=== PATIENT | female | born 1995 | race Caucasian/White ===

== ENCOUNTER 2016-09-18 12:41 | Outpatient (CLI) ==
[2016-07-30 23:48] VITALS: BMI 26.5
== END 2016-09-18 12:42 | disposition home or self-care (01) ==
LOC: LAB 12:41
PROVIDERS: ATTEND Physician Assistant
DX: R19.7 Diarrhea, unspecified (principal)

== ENCOUNTER 2017-02-16 15:47 | Outpatient (CLI) ==
[2016-07-30 23:48] VITALS: BMI 26.5
--- NOTE | 2017-02-16 16:51 | DI ---
EXAM: Thoracic spine three view HISTORY: Back pain COMPARISON: None FINDINGS: Minimal rightward curvature lower thoracic spine. Vertebral bodies normal height. No fr acture. No subluxation. Intervertebral spaces maintained. No fracture. IMPERSSION: Minimal rightward curvature lower thoracic spine. Otherwise normal examination
--- NOTE | 2017-02-16 17:03 | DI ---
EXAM: Four views of the lumbar spine HISTORY: Back pain. COMPARISON: CT abdomen pelvis 11/15/2016 FINDINGS: No acute compression fracture or subluxation. There is minimal facet arthropathy. The angel mbosacral junction is narrowed. Soft tissues are unremarkable. There is changes consistent with ch olecystectomy. IMPRESSION: No acute abnormality of the lumbar spine.
== END 2017-02-16 15:48 | disposition home or self-care (01) ==
LOC: RAD 15:47
PROVIDERS: ATTEND Physician Assistant
DX: M54.6 Pain in thoracic spine (principal)

== ENCOUNTER 2017-05-26 18:44 | Emergency (ER) ==
[2017-05-26 18:51] VITALS: BP 119/75; BMI 30.4
[2017-05-26 19:18] LABS: FLU INTERNAL QC INTERNAL QC VALID; RAPID FLU A NEGATIVE (NEGATIVE); RAPID FLU B NEGATIVE (NEGATIVE)
--- NOTE | 2017-05-26 19:57 | ED.PDOC ---
General ED Provider: Dr. HARPER GALVAN Chief Complaint: Fever Stated Complaint: Patient is brought by with complains of feeling poorly for the past few days with fever sore throat and vomiting yesterday. Time Seen by Physician: 19:20 Mode of Arrival: Walk-In Information Source: Patient Exam Limitations: No limitations Primary Care Provider: SYLVAIN TODD Nursing and Triage Documentation Reviewed and Agree: Yes Miscellaneous Complaint Exam - Febrile Illness/Adult Complaint/Exam Onset/Duration: noon today Symptoms Are: Still present Timing: Constant Highest Temperature Recorded: 101 Initial Severity: Moderate Current Severity: Moderate Aggravating: Reports: None Alleviating: Reports: None Associated Signs and Symptoms: Reports: Sore throat, Nausea, Vomiting ( yesterday ). Denies: Headache, Fluid intake, Short of air, Cough, Chills, Diaphoresis, Dysuria, Arthralgia, Stiff neck, Myalgia, Rash, Altered mental status Pseudomonas Risk Factors: Reports: None Serious Bacterial Infection Risk Factors: Reports: None Current Antibiotic Use: No Related Surgical History: None Specific Findings: Absent: Meningeal signs, Diaphoresis, Joint swelling, Erythema, Cellulitis, Lymphadenopathy, Petechiae, CVA tenderness Differential Diagnoses: Bacteremia, Viremia Review of Systems - Review Of Systems Constitutional: Reports: Fever, Weakness Eyes: Reports: No symptoms Ears, Nose, Mouth, Throat: Reports: Throat pain Respiratory: Reports: No symptoms Cardiac: Reports: No symptoms GI: Reports: Nausea, Vomiting : Reports: No symptoms Musculoskeletal: Reports: No symptoms Skin: Reports: No symptoms Neurological: Reports: Anxiety Endocrine: Reports: No symptoms Hematologic/Lymphatic: Reports: No symptoms All Other Systems: Reviewed and Negative Past Medical History - Past Medical History Previously Healthy: Yes Endocrine: Reports: None Cardiovascular: Reports: None Respiratory: Reports: Asthma Hematological: Reports: None Gastrointestinal: Reports: None Genitourinary: Reports: None Neuro/Psych: Reports: None Musculoskeletal: Reports: None Cancer: Reports: None Last Menstrual Period: 05/11/17 - Surgical History General Surgical History: Reports: , Cholecystectomy, Tonsillectomy - Family History Family History: Reports: None - Social History Smoking Status: Never smoker Hx Substance Use: No Alcohol Screening: None Physical Exam - Physical Exam Appearance: Ill-appearing Ill-appearing: Moderate Eyes: FADUMO, EOMI, Conjunctiva clear ENT: Ears normal, Nose normal, Oropharynx normal Respiratory: Airway patent, Breath sounds clear, Breath sounds equal, Respirations nonlabored Cardiovascular: RRR, Pulses normal, No rub, No murmur GI/: Soft, Nontender, No masses, Bowel sounds normal, No Organomegaly Musculoskeletal: Normal strength, ROM intact, No edema, No calf tenderness Skin: Warm, Dry, Normal color Neurological: Sensation intact, Motor intact, Reflexes intact, Cranial nerves intact, Alert, Oriented Psychiatric: Affect appropriate, Mood appropriate Critical Care Note - Critical Care Note Total Time (mins): 0 Course - Course Hematology/Chemistry: 05/26/17 20:00 05/26/17 20:00 Orders, Labs, Meds: Lab Review 05/26/17 05/26/17 05/26/17 18:55 20:00 20:00 WBC 5.61 RBC 4.19 L Hgb 12.3 Hct 36.8 L MCV 87.8 MCH 29.4 MCHC 33.4 RDW Coeff of Garcia 12.3 Plt Count 195 Immature Gran % (Auto) 0.4 Neut % (Auto) 75.8 Lymph % (Auto) 14.8 [place] % (Auto) 8.4 Eos % (Auto) 0.2 Baso % (Auto) 0.4 Immature Gran # (Auto) 0.0 Neut # 4.3 Lymph # 0.8 [place] # 0.5 Eos # 0.0 Baso # 0.0 Sodium 136 Potassium 3.4 L Chloride 101 Carbon Dioxide 26 Anion Gap 12.4 BUN 7 Creatinine 0.84 Estimated GFR (MDRD) 85.00 BUN/Creatinine Ratio 8.33 Glucose 94 Calcium 9.1 Total Bilirubin 0.54 AST 28 ALT 45 Alkaline Phosphatase 95 Total Protein 7.3 Albumin 3.7 Globulin 3.6 Albumin/Globulin Ratio 1.03 Serum , Qual Urine Color Urine Clarity Urine pH Ur Specific [place] Urine Protein Urine Glucose (UA) Urine Ketones Urine Blood Urine Nitrite Urine Bilirubin Urine Urobilinogen Ur Leukocyte Esterase Influenza A (Rapid) Negative Influenza B (Rapid) Negative 05/26/17 05/26/17 20:00 20:07 WBC RBC Hgb Hct MCV MCH MCHC RDW Coeff of Garcia Plt Count Immature Gran % (Auto) Neut % (Auto) Lymph % (Auto) [place] % (Auto) Eos % (Auto) Baso % (Auto) Immature Gran # (Auto) Neut # Lymph # [place] # Eos # Baso # Sodium Potassium Chloride Carbon Dioxide Anion Gap BUN Creatinine Estimated GFR (MDRD) BUN/Creatinine Ratio Glucose Calcium Total Bilirubin AST ALT Alkaline Phosphatase Total Protein Albumin Globulin Albumin/Globulin Ratio Serum , Qual Negative Urine Color Yellow Urine Clarity Clear Urine pH 6.0 Ur Specific [place] <=1.005 Urine Protein Negative Urine Glucose (UA) Negative Urine Ketones Negative Urine Blood Negative Urine Nitrite Negative Urine Bilirubin Negative Urine Urobilinogen 0.2 Ur Leukocyte Esterase Negative Influenza A (Rapid) Influenza B (Rapid) Orders Category Date Time Status ED IV/MEDIPORT/POWERPORT .ONCE EMERGENCY 05/26/17 19:52 Active CBC W/ AUTO DIFF Stat LAB 05/26/17 20:00 Completed COMPREHENSIVE METABOLIC PANEL Stat LAB 05/26/17 20:00 Completed HCG QUALITATIVE [SERUM ] Stat LAB 05/26/17 20:00 Completed MOLECULAR GROUP A STREP Stat LAB 05/26/17 18:55 Results RAPID FLU A/B Stat LAB 05/26/17 18:55 Completed RAPID STREP SCREEN [STREP SCREEN] Stat LAB 05/26/17 18:55 Results URINALYSIS C & S IF INDICATED Stat LAB 05/26/17 20:07 Completed 0.9 % Sodium Chloride [Saline Flush] MEDS 05/26/17 19:52 Ordered 1 syr IVF PRN PRN Acetaminophen [Tylenol] MEDS 05/26/17 19:57 Discontinued 1,000 mg PO ONCE STA Sodium Chloride 0.9% [Sodium Chloride] 1,000 ml MEDS 05/26/17 19:52 Active IV BOLUS Medications Generic Name Dose Route Start Last Admin Trade Name Freq PRN Reason Stop Dose Admin Sodium Chloride 1,000 mls @ 1,000 mls/hr 05/26/17 19:52 05/26/17 20:04 Sodium Chloride IV 05/26/17 20:51 1,000 mls/hr BOLUS STA Administration Sodium Chloride 1 syr 05/26/17 19:52 Saline Flush IVF PRN PRN To flush IV Discontinued Medications Generic Name Dose Route Start Last Admin Trade Name Freq PRN Reason Stop Dose Admin Acetaminophen 1,000 mg 05/26/17 19:57 05/26/17 20:00 Tylenol PO 05/26/17 19:58 1,000 mg ONCE STA Administration Vital Signs: Temp Pulse Resp BP Pulse Ox 05/26/17 20:47 100.8 F H 05/26/17 18:45 101.9 F H 81 20 119/75 98 Departure - Departure Time of Disposition: 20:50 Disposition: HOME SELF-CARE Discharge Problem: Viral syndrome Instructions: Viral Syndrome (ED) Condition: Fair Pt referred to PMD for follow-up: Yes Additional Instructions: Push fluids Follow up wit PCP in 3 day Alternate Tylenol with Motrin Take nausea medication as prescribed. Prescriptions: Ondansetron HCl [Zofran Tab] 4 mg PO Q8H PRN #14 tablet PRN Reason: Nausea / Vomiting Allergies/Adverse Reactions: Allergies No Known Allergies Allergy (Verified 05/26/17 18:51) Home Medications: Ambulatory Orders Ondansetron HCl [Zofran Tab] 4 mg PO Q8H PRN #14 tablet 05/26/17 Disposition Discussed With: Patient, Family
[2017-05-26] MEDS: TYLENOL PO STA (20:00)
[2017-05-26] MEDS: SODIUM CHLORIDE 1,000 ML IV STA (20:04)
[2017-05-26 20:08] LABS: BASOPHILS % (AUTO) 0.4 % (0.0-3.0); EOSINOPHILS % (AUTO) 0.2 % (0.0-7.0); HEMATOCRIT 36.8 % (37.0-47.0); HEMOGLOBIN 12.3 g/dl (12.0-16.0); IMMATURE GRANULOCYTE % (AUTO) 0.4 % (0.0-5.0); LYMPHOCYTES # (AUTO) 0.8 K/uL (0.60-3.4); LYMPHOCYTES % (AUTO) 14.8 (10.0-50.0); MEAN CORPUSCULAR HEMOGLOBIN 29.4 pg (27.0-31.0); MEAN CORPUSCULAR HGB CONC 33.4 (31.8-35.4); MEAN CORPUSCULAR VOLUME 87.8 fl (81.0-99.0); MONOCYTES # (AUTO) 0.5 K/uL (0.4-2.0); MONOCYTES % (AUTO) 8.4 (0-10); NEUTROPHILS # (AUTO) 4.3 K/ul (2.0-6.9); NEUTROPHILS % (AUTO) 75.8; PLATELET COUNT 195 10^3/uL (140-440); RED BLOOD COUNT 4.19 10^6/ul (4.20-5.40); WHITE BLOOD COUNT 5.61 K/ul (4.6-10.2)
[2017-05-26 20:16] LABS: BILIRUBIN,URINE Negative (NEGATIVE); KETONES,URINE Negative (NEGATIVE); LEUKOCYTE ESTERASE ,URINE Negative (NEGATIVE); NITRITE,URINE Negative (NEGATIVE); PROTEIN,URINE Negative (NEGATIVE); URINE, BLOOD Negative (NEGATIVE)
[2017-05-26 20:17] LABS: ADD URINE MICROSCOPIC NO
[2017-05-26 20:24] LABS: SERUM PREGNANCY INTERNAL QC INTERNAL QC VALID
[2017-05-26 20:28] LABS: ALBUMIN 3.7 g/dL (3.4-5.0); ALBUMIN/GLOBULIN RATIO 1.03; ANION GAP 12.4; BILIRUBIN,TOTAL 0.54 mg/dL (0.00-1.20); BUN/CREATININE RATIO 8.33; CALCIUM 9.1 mg/dL (8.2-10.2); CREATININE 0.84 mg/dL (0.60-1.30); POTASSIUM 3.4 mmol/L (3.5-5.10); TOTAL PROTEIN 7.3 g/dL (6.4-8.2)
[2017-05-26 20:48] VITALS: TEMP 100.8
[2017-05-26] MEDS: ZOFRAN 4 MG/2 ML IVP STA (20:55)
== END 2017-05-26 21:14 | disposition home or self-care (01) ==
LOC: ED 18:44
DX: B34.9 Viral infection, unspecified (principal)
CPT/HCPCS: 36415; 80053; 81001; 84703; 85025; 87651; 87804; 87880; 96361; 96374; 99283

== ENCOUNTER 2017-06-13 12:27 | Emergency (ER) ==
[2017-06-13 12:27] VITALS: BMI 30.4
[2017-06-13 12:30] VITALS: BP 122/82; TEMP 98.9
[2017-06-13 13:18] LABS: FLU INTERNAL QC INTERNAL QC VALID; RAPID FLU A NEGATIVE (NEGATIVE); RAPID FLU B NEGATIVE (NEGATIVE)
--- NOTE | 2017-06-13 13:59 | ED.PDOC ---
General ED Provider: Dr. HARPER GALVAN Chief Complaint: Cough Stated Complaint: Pateint states she has had cough symtoms for 2 weeks. Has been told it is viral. Return today beause he is still coughing and has pain on the throat when she coughs. She admits to secound hand tobacco exposure from the . Time Seen by Physician: 13:57 Mode of Arrival: Walk-In Information Source: Patient Exam Limitations: No limitations Primary Care Provider: SYLVAIN TODD Nursing and Triage Documentation Reviewed and Agree: Yes Review of Systems - Review Of Systems Constitutional: Reports: No symptoms Eyes: Reports: No symptoms Ears, Nose, Mouth, Throat: Reports: No symptoms, Throat pain Respiratory: Reports: Cough (non productive ) Cardiac: Reports: No symptoms GI: Reports: No symptoms : Reports: No symptoms Musculoskeletal: Reports: No symptoms Skin: Reports: No symptoms Neurological: Reports: No symptoms Endocrine: Reports: No symptoms Hematologic/Lymphatic: Reports: No symptoms All Other Systems: Reviewed and Negative Past Medical History - Past Medical History Previously Healthy: Yes Endocrine: Reports: None Cardiovascular: Reports: None Respiratory: Reports: Asthma Hematological: Reports: None Gastrointestinal: Reports: None Genitourinary: Reports: None Neuro/Psych: Reports: None Musculoskeletal: Reports: None Cancer: Reports: None Last Menstrual Period: now - Surgical History General Surgical History: Reports: , Cholecystectomy, Tonsillectomy - Family History Family History: Reports: None - Social History Smoking Status: Never smoker Hx Substance Use: No Alcohol Screening: None - Immunizations Influenza Vaccine within 12 Months: No Pneumococcal Vaccine up to Date: No Physical Exam - Physical Exam Appearance: Well-appearing, No pain distress, Well-nourished Eyes: FADUMO, EOMI, Conjunctiva clear ENT: Ears normal, Nose normal, Oropharynx normal Respiratory: Airway patent, Breath sounds clear, Breath sounds equal, Respirations nonlabored Cardiovascular: RRR, Pulses normal, No rub, No murmur GI/: Soft, Nontender, No masses, Bowel sounds normal, No Organomegaly Musculoskeletal: Normal strength, ROM intact, No edema, No calf tenderness Skin: Warm, Dry, Normal color Neurological: Sensation intact, Motor intact, Reflexes intact, Cranial nerves intact, Alert, Oriented Psychiatric: Affect appropriate, Mood appropriate Critical Care Note - Critical Care Note Total Time (mins): 0 Course - Course Orders, Labs, Meds: Lab Review 06/13/17 13:00 Influenza A (Rapid) Negative Influenza B (Rapid) Negative Orders Category Date Time Status FLU A & B RAPID TEST [RAPID FLU A/B] Stat LAB 06/13/17 13:00 Completed MOLECULAR GROUP A STREP Stat LAB 06/13/17 13:00 Results STREP SCREEN Stat LAB 06/13/17 13:00 Results Vital Signs: Temp Pulse Resp BP Pulse Ox 06/13/17 12:27 98.9 F 76 18 122/82 98 Departure - Departure Time of Disposition: 13:57 Disposition: HOME SELF-CARE Discharge Problem: Cough Instructions: Cold Symptoms (ED) Condition: Stable Pt referred to PMD for follow-up: Yes Additional Instructions: Avoid second hand smoke exposure Take medications as needed. Prescriptions: Benzonatate [Tessalon Perles] 100 mg PO TID PRN #25 capsule PRN Reason: Cold Symptons Allergies/Adverse Reactions: Allergies No Known Allergies Allergy (Verified 06/13/17 12:30) Home Medications: Ambulatory Orders Benzonatate [Tessalon Perles] 100 mg PO TID PRN #25 capsule 06/13/17 Disposition Discussed With: Patient
== END 2017-06-13 14:24 | disposition home or self-care (01) ==
LOC: ED 12:27
DX: R05 Cough (principal); R07.0 Pain in throat; Z77.22 Contact with and (suspected) exposure to environmental tobacco smoke (acute) (chronic)
CPT/HCPCS: 87651; 87804; 87880; 99283

== ENCOUNTER 2017-08-03 16:20 | Emergency (ER) ==
[2017-08-03 16:27] VITALS: BP 130/79; TEMP 100; BMI 30.1
[2017-08-03] MEDS ORDERED: ZOFRAN 4 MG/2 ML IM STA (16:30)
[2017-08-03 16:49] LABS: BASOPHILS % (AUTO) 0.3 % (0.0-3.0); EOSINOPHILS % (AUTO) 0.1 % (0.0-7.0); HEMATOCRIT 42.3 % (37.0-47.0); HEMOGLOBIN 14.1 g/dl (12.0-16.0); IMMATURE GRANULOCYTE % (AUTO) 0.2 % (0.0-5.0); LYMPHOCYTES # (AUTO) 0.5 K/uL (0.60-3.4); LYMPHOCYTES % (AUTO) 3.8 (10.0-50.0); MEAN CORPUSCULAR HEMOGLOBIN 29.2 pg (27.0-31.0); MEAN CORPUSCULAR HGB CONC 33.3 (31.8-35.4); MEAN CORPUSCULAR VOLUME 87.6 fl (81.0-99.0); MONOCYTES # (AUTO) 0.3 K/uL (0.4-2.0); MONOCYTES % (AUTO) 2.2 (0-10); NEUTROPHILS % (AUTO) 93.4; PLATELET COUNT 190 10^3/uL (140-440); RED BLOOD COUNT 4.83 10^6/ul (4.20-5.40); WHITE BLOOD COUNT 11.74 K/ul (4.6-10.2)
[2017-08-03 17:00] LABS: BILIRUBIN,URINE 1+ (NEGATIVE); KETONES,URINE Negative (NEGATIVE); LEUKOCYTE ESTERASE ,URINE Negative (NEGATIVE); NITRITE,URINE Negative (NEGATIVE); PH,URINE 5.5 (5-9); PROTEIN,URINE Trace (NEGATIVE); URINE, BLOOD 3+ (NEGATIVE)
[2017-08-03 17:05] LABS: URINE PREGNANCY INTERNAL QC INTERNAL QC VALID
[2017-08-03 17:07] LABS: ADD URINE MICROSCOPIC YES
[2017-08-03 17:09] LABS: BACTERIA,URINE 2+ (NOT PRESENT)
[2017-08-03 17:11] LABS: FLU INTERNAL QC INTERNAL QC VALID; RAPID FLU A NEGATIVE (NEGATIVE); RAPID FLU B NEGATIVE (NEGATIVE)
[2017-08-03 17:12] LABS: ALBUMIN 3.9 g/dL (3.4-5.0); ALBUMIN/GLOBULIN RATIO 1.03; ANION GAP 12.8; BILIRUBIN,TOTAL 0.8 mg/dL (0.00-1.20); BUN/CREATININE RATIO 18.66; CALCIUM 8.7 mg/dL (8.2-10.2); CREATININE 0.75 mg/dL (0.60-1.30); POTASSIUM 3.8 mmol/L (3.5-5.10); TOTAL PROTEIN 7.7 g/dL (6.4-8.2)
--- NOTE | 2017-08-03 18:03 | ED.PDOC ---
General ED Provider: Dr. KAT HAWKINS Chief Complaint: Nausea/Vomiting Stated Complaint: ABDOMINAL PAIN Time Seen by Physician: 16:30 (SEEN WITH KAVYA AT ALL TIMES ) Mode of Arrival: Walk-In Information Source: Patient Exam Limitations: No limitations Primary Care Provider: SYLVAIN TODD Nursing and Triage Documentation Reviewed and Agree: Yes GI Complaint Exam - Abdominal Pain Complaint/Exam Onset: Gradual Duration: 1 DAY Symptoms Are: Still present Timing: Intermittent Initial Severity: Mild Current Severity: Mild Location of Pain: Suprapubic Character: Reports: Aching Aggravating: Reports: None Alleviating: Reports: Vomiting Associated Signs and Symptoms: Reports: Dysuria. Denies: Diaphoresis, Fever, Cough, Chest pain, Dizziness, Back pain, Constipation, Blood in stool, Urinary frequency, Decreased urine output, Decreased appetite, Vaginal bleeding, Vaginal discharge, Nausea, Vomiting, Diarrhea, Sore throat, Decreased activity AAA Risk Factors: Reports: None Cardiac Risk Factors: Reports: None Ectopic Risk Factors: Reports: None Ovarian Torsion Risk Factors: Reports: None Surgical Obstruction Risk Factors: Reports: None Related Surgical History: Reports: None Patient Rh Status: Unknown Abdominal Findings: Present: None Differential Diagnoses: Appendicitis, Bowel Obstruction, Constipation, Gastroenteritis, UTI Review of Systems - Review Of Systems Constitutional: Reports: Chills, Malaise, Weakness Eyes: Reports: No symptoms Ears, Nose, Mouth, Throat: Reports: No symptoms Respiratory: Reports: No symptoms Cardiac: Reports: No symptoms GI: Reports: Abdominal pain, Diarrhea, Nausea, Poor appetite, Vomiting : Reports: No symptoms Musculoskeletal: Reports: No symptoms Skin: Reports: No symptoms Neurological: Reports: No symptoms Endocrine: Reports: No symptoms Hematologic/Lymphatic: Reports: No symptoms All Other Systems: Reviewed and Negative Past Medical History - Past Medical History Previously Healthy: Yes Endocrine: Reports: None Cardiovascular: Reports: None Respiratory: Reports: Asthma Hematological: Reports: None Gastrointestinal: Reports: None Genitourinary: Reports: None Neuro/Psych: Reports: None Musculoskeletal: Reports: None Cancer: Reports: None Last Menstrual Period: jul 11 - Surgical History General Surgical History: Reports: , Cholecystectomy, Tonsillectomy - Family History Family History: Reports: None - Social History Smoking Status: Never smoker Hx Substance Use: No Alcohol Screening: None - Immunizations Influenza Vaccine within 12 Months: No Pneumococcal Vaccine up to Date: No Physical Exam - Physical Exam Appearance: Well-appearing, No pain distress, Well-nourished Eyes: FADUMO, EOMI, Conjunctiva clear ENT: Ears normal, Nose normal, Oropharynx normal Respiratory: Airway patent, Breath sounds clear, Breath sounds equal, Respirations nonlabored Cardiovascular: RRR, Pulses normal, No rub, No murmur GI/: Soft, Nontender, No masses, Bowel sounds normal, No Organomegaly Musculoskeletal: Normal strength, ROM intact, No edema, No calf tenderness Skin: Warm, Dry, Normal color Neurological: Sensation intact, Motor intact, Reflexes intact, Cranial nerves intact, Alert, Oriented Psychiatric: Affect appropriate, Mood appropriate Critical Care Note - Critical Care Note Total Time (mins): 0 Course - Course Hematology/Chemistry: 08/03/17 16:43 08/03/17 16:43 Orders, Labs, Meds: Lab Review 08/03/17 08/03/17 08/03/17 16:35 16:35 16:35 WBC RBC Hgb Hct MCV MCH MCHC RDW Coeff of Garcia Plt Count Immature Gran % (Auto) Neut % (Auto) Lymph % (Auto) [place] % (Auto) Eos % (Auto) Baso % (Auto) Immature Gran # (Auto) Neut # Lymph # [place] # Eos # Baso # Sodium Potassium Chloride Carbon Dioxide Anion Gap BUN Creatinine Estimated GFR (MDRD) BUN/Creatinine Ratio Glucose Calcium Total Bilirubin AST ALT Alkaline Phosphatase Total Protein Albumin Globulin Albumin/Globulin Ratio Urine Color Yellow Urine Clarity Turbid Urine pH 5.5 Ur Specific [place] 1.025 Urine Protein Trace Urine Glucose (UA) Negative Urine Ketones Negative Urine Blood 3+ Urine Nitrite Negative Urine Bilirubin 1+ Urine Urobilinogen 0.2 Ur Leukocyte Esterase Negative Urine Microscopic RBC 5-10 Urine Microscopic WBC 0-2 Ur Squamous Epith Cells Not present Amorphous Sediment 2+ Urine Bacteria 2+ Urine Test Negative Influenza A (Rapid) Negative Influenza B (Rapid) Negative 08/03/17 08/03/17 16:43 16:43 WBC 11.74 H RBC 4.83 Hgb 14.1 Hct 42.3 MCV 87.6 MCH 29.2 MCHC 33.3 RDW Coeff of Garcia 13.1 Plt Count 190 Immature Gran % (Auto) 0.2 Neut % (Auto) 93.4 Lymph % (Auto) 3.8 L [place] % (Auto) 2.2 Eos % (Auto) 0.1 Baso % (Auto) 0.3 Immature Gran # (Auto) 0.0 Neut # 11.0 H Lymph # 0.5 L [place] # 0.3 L Eos # 0.0 Baso # 0.0 Sodium 138 Potassium 3.8 Chloride 105 Carbon Dioxide 24 Anion Gap 12.8 BUN 14 Creatinine 0.75 Estimated GFR (MDRD) 97.00 BUN/Creatinine Ratio 18.66 Glucose 114 H Calcium 8.7 Total Bilirubin 0.8 AST 14 L ALT 13 Alkaline Phosphatase 87 Total Protein 7.7 Albumin 3.9 Globulin 3.8 Albumin/Globulin Ratio 1.03 Urine Color Urine Clarity Urine pH Ur Specific [place] Urine Protein Urine Glucose (UA) Urine Ketones Urine Blood Urine Nitrite Urine Bilirubin Urine Urobilinogen Ur Leukocyte Esterase Urine Microscopic RBC Urine Microscopic WBC Ur Squamous Epith Cells Amorphous Sediment Urine Bacteria Urine Test Influenza A (Rapid) Influenza B (Rapid) Orders Category Date Time Status CBC W/ AUTO DIFF Stat LAB 08/03/17 16:43 Completed COMPREHENSIVE METABOLIC PANEL Stat LAB 08/03/17 16:43 Completed MOLECULAR GROUP A STREP Stat LAB 08/03/17 16:35 Results RAPID FLU A/B Stat LAB 08/03/17 16:35 Completed STREP SCREEN Stat LAB 08/03/17 16:35 Results URINALYSIS C & S IF INDICATED Stat LAB 08/03/17 16:35 Completed URINE CULTURE Stat LAB 08/03/17 16:35 Received URINE Stat LAB 08/03/17 16:35 Completed Ondansetron HCl/Pf [Zofran 4 mg/2 ml] MEDS 08/03/17 16:30 Discontinued 4 mg IM ONCE STA CHEST, 2 VIEWS PA & LAT Stat RADS 08/03/17 16:[address] ABDOMEN/PELVIS WO CONTRAST Stat RADS 08/03/17 16:29 Taken Medications Discontinued Medications Generic Name Dose Route Start Last Admin Trade Name Freq PRN Reason Stop Dose Admin Ondansetron HCl 4 mg 08/03/17 16:30 08/03/17 16:50 Zofran 4 Mg/2 Ml IM 08/03/17 16:31 4 mg ONCE STA Administration Vital Signs: Temp Pulse Resp BP Pulse Ox 08/03/17 16:21 100 F H 87 16 130/79 99 Departure - Departure Time of Disposition: 19:00 Disposition: HOME SELF-CARE Discharge Problem: Nausea Abdominal pain Qualifiers: Abdominal location: generalized Qualified Code(s): R10.84 - Generalized abdominal pain UTI (urinary tract infection) Qualifiers: Urinary tract infection type: site unspecified Hematuria presence: with hematuria Qualified Code(s): N39.0 - Urinary tract infection, site not specified ; R31.9 - Hematuria, unspecified; R31.9 - Hematuria, unspecified Instructions: Abdominal Pain (ED) Condition: Good Pt referred to PMD for follow-up: Yes Additional Instructions: Please call your Family Physician as soon as possible to schedule a follow-up appointment.S TART MEDS IN AM PAIN MEDS NEEDED Allergies/Adverse Reactions: Allergies No Known Allergies Allergy (Verified 08/03/17 16:29) Home Medications: Ambulatory Orders 1 [No Reported Medications] 08/03/17
[2017-08-03] MEDS ORDERED: LIDOCAINE HCL 1% SDV SUBCUT STA (18:06)
[2017-08-03] MEDS ORDERED: ROCEPHIN IM STA (18:06)
--- NOTE | 2017-08-03 18:11 | CT ---
EXAM: CT abdomen pelvis without contrast HISTORY: Abdominal pain COMPARISON: 11/15/2016 TECHNIQUE: CT abdomen pelvis performed without intravenous contrast. Coronal and sagittal reformatt ed images obtained. FINDINGS: Lungs are clear. No free air. No acute abnormalities of the bones. Evaluation organ par enchyma limited without contrast. Liver unremarkable. Gallbladder unremarkable. Pancreas unremarka ble. Spleen unremarkable. Adrenals unremarkable. Kidneys unremarkable without hydronephrosis or ne phrolithiasis. No calculi visualized in normal course of the ureters. Bladder only minimally disten ded and poorly evaluated, grossly unremarkable. Uterus unremarkable. Aorta normal in caliber. No l ymphadenopathy or ascites. Small subcutaneous air left gluteal region likely relates to injection of medicine. Stomach unremarkable. No dilated loops small bowel. Scattered fluid-filled loops small bowel and fluid in the right colon may relate to enteritis. Appendix not definitively visualized. Sm all fat-containing umbilical hernia. No inflammatory stranding identified in the abdomen pelvis. IMPRESSION: 1. Possible mild enteritis. 2. No hydronephrosis or nephrolithiasis.
--- NOTE | 2017-08-03 18:53 | DI ---
EXAM: Chest two views HISTORY: Cough COMPARISON: None TECHNIQUE: Two views of the chest were performed FINDINGS: The lungs are clear. There is no pleural effusion or pneumothorax. The heart is normal i n size. The mediastinal contour is normal. There are no acute abnormalities of the bones. IMPRESSION: No acute cardiopulmonary process.
== END 2017-08-03 18:48 | disposition home or self-care (01) ==
LOC: ED 16:20
DX: N39.0 Urinary tract infection, site not specified (principal); R31.9 Hematuria, unspecified; R10.84 Generalized abdominal pain; R11.2 Nausea with vomiting, unspecified
CPT/HCPCS: 36415; 80053; 81001; 81025; 85025; 87086; 87651; 87804; 87880; 96372; 99283

== ENCOUNTER 2017-09-06 20:34 | Emergency (ER) ==
[2017-09-06 20:35] VITALS: BMI 30.1
[2017-09-06 20:58] VITALS: BP 116/74; TEMP 99
--- NOTE | 2017-09-06 21:35 | ED.PDOC ---
General ED Provider: Dr. CORRIE DHALIWAL-ER Chief Complaint: Urinary Problem Stated Complaint: it moseley when i pee Time Seen by Physician: 21:33 Mode of Arrival: Walk-In Information Source: Patient Exam Limitations: No limitations Primary Care Provider: SYLVAIN TODD Nursing and Triage Documentation Reviewed and Agree: Yes Reviewed sepsis parameters & appropriate labs ordered?: Yes System Inflammatory Response Syndrome: Not Applicable Sepsis Protocol: For patient's 13 years and over: Temp is 96.8 and below OR 101 and greater Pulse >90 BPM Resp >20/minute Acutely Altered Mental Status Are patient's symptoms suggestive of a new infection, such as: -Pneumonia -Skin, Soft Tissue -Endocarditis -UTI -Bone, Joint Infection -Implantable Device -Acute Abdominal Infection -Wound Infection -Meningitis -Blood Stream Catheter Infection -Unknown Complaint Exam - UTI Female Complaint/Exam Patient Complains of: Reports: Painful urination Onset/Duration: 3 days Symptoms Are: Still present Timing: Intermittent Initial Severity: Mild Current Severity: Mild Location of Pain: Reports: Suprapubic Associated Signs and Symptoms: Denies: Fever, Chills, Flank pain, Dyspareunia, Vaginal discharge CVA Tenderness: No Suprapubic Tenderness: No Differential Diagnoses: Bladder Dysfunction, Cystitis Review of Systems - Review Of Systems Constitutional: Reports: No symptoms Eyes: Reports: No symptoms Ears, Nose, Mouth, Throat: Reports: No symptoms Respiratory: Reports: No symptoms Cardiac: Reports: No symptoms GI: Reports: No symptoms : Reports: Burning, Dysuria Musculoskeletal: Reports: No symptoms Skin: Reports: No symptoms Neurological: Reports: No symptoms Endocrine: Reports: No symptoms Hematologic/Lymphatic: Reports: No symptoms All Other Systems: Reviewed and Negative Past Medical History - Past Medical History Previously Healthy: Yes Endocrine: Reports: None Cardiovascular: Reports: None Respiratory: Reports: Asthma Hematological: Reports: None Gastrointestinal: Reports: None Genitourinary: Reports: None Neuro/Psych: Reports: None Musculoskeletal: Reports: None Cancer: Reports: None Last Menstrual Period: 08/31/17 - Surgical History General Surgical History: Reports: , Cholecystectomy, Tonsillectomy - Family History Family History: Reports: None - Social History Smoking Status: Never smoker Hx Substance Use: No Alcohol Screening: None - Immunizations Tetanus Shot up to Date: Yes Influenza Vaccine within 12 Months: No Pneumococcal Vaccine up to Date: No Physical Exam - Physical Exam Appearance: Well-appearing Eyes: FADUMO, EOMI, Conjunctiva clear ENT: Ears normal, Nose normal, Oropharynx normal Neck: Supple Respiratory: Airway patent, Breath sounds clear, Breath sounds equal, Respirations nonlabored Cardiovascular: RRR, Pulses normal, No rub, No murmur GI/: Soft Musculoskeletal: Normal strength Skin: Warm, Dry, Normal color Neurological: Sensation intact, Motor intact, Reflexes intact, Cranial nerves intact, Alert, Oriented Psychiatric: Affect appropriate Critical Care Note - Critical Care Note Total Time (mins): 0 Course - Course Hematology/Chemistry: 09/06/17 22:00 09/06/17 22:00 Orders, Labs, Meds: Lab Review 09/06/17 09/06/17 09/06/17 21:00 21:00 22:00 WBC 8.05 RBC 4.25 Hgb 12.7 Hct 37.8 MCV 88.9 MCH 29.9 MCHC 33.6 RDW Coeff of Garcia 13.1 Plt Count 218 Immature Gran % (Auto) 0.2 Neut % (Auto) 67.1 Lymph % (Auto) 26.2 Gilliam % (Auto) 4.8 Eos % (Auto) 1.2 Baso % (Auto) 0.5 Immature Gran # (Auto) 0.0 Neut # 5.4 Lymph # 2.1 Gilliam # 0.4 Eos # 0.1 Baso # 0.0 Sodium Potassium Chloride Carbon Dioxide Anion Gap BUN Creatinine Estimated GFR (MDRD) BUN/Creatinine Ratio Glucose Calcium Total Bilirubin AST ALT Alkaline Phosphatase Total Protein Albumin Globulin Albumin/Globulin Ratio Amylase Lipase Urine Color Yellow Urine Clarity Cloudy Urine pH 8.5 Ur Specific [place] 1.020 Urine Protein Negative Urine Glucose (UA) Negative Urine Ketones Negative Urine Blood 1+ Urine Nitrite Negative Urine Bilirubin Negative Urine Urobilinogen 0.2 Ur Leukocyte Esterase 1+ Urine Microscopic RBC 0-2 Urine Microscopic WBC 0-2 Ur Squamous Epith Cells 5-10 Amorphous Sediment Trace Urine Bacteria Trace Fine Granular Casts 0-2 Urine Yeast Trace Urine Test Negative 09/06/17 22:00 WBC RBC Hgb Hct MCV MCH MCHC RDW Coeff of Garcia Plt Count Immature Gran % (Auto) Neut % (Auto) Lymph % (Auto) Gilliam % (Auto) Eos % (Auto) Baso % (Auto) Immature Gran # (Auto) Neut # Lymph # Gilliam # Eos # Baso # Sodium 140 Potassium 4.3 Chloride 106 Carbon Dioxide 27 Anion Gap 11.3 BUN 14 Creatinine 0.79 Estimated GFR (MDRD) 91.00 BUN/Creatinine Ratio 17.72 Glucose 82 Calcium 9.1 Total Bilirubin < 0.3 AST 13 L ALT 13 Alkaline Phosphatase 74 Total Protein 7.0 Albumin 3.6 Globulin 3.4 Albumin/Globulin Ratio 1.06 Amylase 31 Lipase 11 Urine Color Urine Clarity Urine pH Ur Specific [place] Urine Protein Urine Glucose (UA) Urine Ketones Urine Blood Urine Nitrite Urine Bilirubin Urine Urobilinogen Ur Leukocyte Esterase Urine Microscopic RBC Urine Microscopic WBC Ur Squamous Epith Cells Amorphous Sediment Urine Bacteria Fine Granular Casts Urine Yeast Urine Test Orders Category Date Time Status AMYLASE Stat LAB 09/06/17 22:00 Completed CBC W/ AUTO DIFF Stat LAB 09/06/17 22:00 Completed COMPREHENSIVE METABOLIC PANEL Stat LAB 09/06/17 22:00 Completed LIPASE Stat LAB 09/06/17 22:00 Completed URINALYSIS C & S IF INDICATED Stat LAB 09/06/17 21:00 Completed URINE CULTURE Stat LAB 09/06/17 21:00 Received URINE Stat LAB 09/06/17 21:00 Completed Meperidine HCl/Pf [Demerol 25 mg/ml Vial] MEDS 09/06/17 22:23 Discontinued 25 mg IM ONCE STA Promethazine HCl [Phenergan 25 mg/ml Vial] MEDS 09/06/17 22:23 Discontinued 25 mg IM ONCE STA CT ABDOMEN/PELVIS WO CONTRAST Stat RADS 09/06/17 21:37 Completed Medications Discontinued Medications Generic Name Dose Route Start Last Admin Trade Name Freq PRN Reason Stop Dose Admin Meperidine HCl 25 mg 09/06/17 22:23 Demerol 25 Mg/Ml Vial IM 09/06/17 22:24 ONCE STA Promethazine HCl 25 mg 09/06/17 22:23 Phenergan 25 Mg/Ml Vial IM 09/06/17 22:24 ONCE STA Vital Signs: Temp Pulse Resp BP Pulse Ox 09/06/17 20:46 99 F 75 20 116/74 99 Departure - Departure Time of Disposition: 21:34 Disposition: HOME SELF-CARE Discharge Problem: Urinary symptoms Instructions: Urinary Tract Infection in Women (ED) Condition: Good Pt referred to PMD for follow-up: Yes IPMP verified?: No Additional Instructions: bactrim ds bid x 7 days---f/u wti pcp Allergies/Adverse Reactions: Allergies ketorolac [From Toradol] Adverse Reaction (Verified 09/06/17 20:54) Hives tramadol Adverse Reaction (Verified 09/06/17 20:54) Difficulty Swallowing Home Medications: Ambulatory Orders 1 [No Reported Medications] 09/06/17 Disposition Discussed With: Patient
--- NOTE | 2017-09-06 22:02 | CT ---
EXAM: CT scan abdomen pelvis without contrast HISTORY: Left flank pain COMPARISON: CT scan abdomen pelvis 08/03/2017 FINDINGS: Contiguous axial images obtained through the abdomen pelvis without contrast utilizing 3-m m collimation. Sagittal and coronal reconstructions were imaged and reviewed. The visualized lung ba ses are clear. There has been prior cholecystectomy. The liver, pancreas, spleen and adrenal glands have normal unenhanced CT appearance. The abdominal aorta is normal in course and caliber. The kid neys are morphologically normal.. There is no free fluid or inflammatory changes. There is partial vi sualization of the appendix which appears normal.. Bone windows reveals no evidence of lytic or chacha tic lesions. IMPRESSION: No acute intra-abdominal findings.
[2017-09-06] MEDS ORDERED: PHENERGAN 25 MG/ML VIAL IM STA (22:23)
[2017-09-06] MEDS ORDERED: DEMEROL 25 MG/ML VIAL IM STA (22:23)
== END 2017-09-06 22:55 | disposition home or self-care (01) ==
LOC: ED 20:34
DX: N39.0 Urinary tract infection, site not specified (principal)
CPT/HCPCS: 36415; 80053; 81001; 81025; 82150; 83690; 85025; 87086; 96372; 99283